=== PATIENT | female | born 1955 | race Caucasian/White ===

== ENCOUNTER 2018-03-16 21:04 | Observation (INO) | payer OTHER ==
[~2018-03-16] VITALS: Ht 154.9 cm; Wt 69.4 kg
[2018-03-16 21:41] VITALS: BP 139/84
--- NOTE | 2018-03-16 21:43 | NUR ---
DR TYREL VAUGHN MBA ON THE PHONE FOR ORDERS FROM DR SARAH. NEW ORDER RECEIVED FOR EKG.
[2018-03-16] MEDS ORDERED: NS 100ML 100 ML IV ONE (22:02)
[2018-03-16] MEDS ORDERED: LACTATED RINGERS 1,000 ML ONE (22:02)
--- NOTE | 2018-03-16 22:03 | ER.PDOC ---
General Chief Complaint: Female Urogenital Problems Stated Complaint: KIDNEY STONES Time seen by MD: 22:00 Source: patient Exam Limitations: no limitations History of Present Illness Initial Comments Right flank pain today, came from [place] to be admitted for right ureteral calculus. Severity/Quality: severe, sharpness Radiation: RLQ Associated Symptoms: nausea/vomiting Exacerbated by: nothing Relieved By: nothing Allergies: Coded Allergies: No Known Allergies (Unverified , 03/16/18) Vital Signs First Vital Signs Date Time Temp Pulse Resp B/P (MAP) Pulse Ox O2 Delivery O2 Flow Rate FiO2 03/16/18 21:36 98.1 65 17 98.1 03/16/18 21:36 97 Room Air 03/16/18 21:41 139/84 (102) Last Vital Signs Date Time Temp Pulse Resp B/P (MAP) Pulse Ox O2 Delivery O2 Flow Rate FiO2 03/16/18 21:41 98.1 65 17 139/84 (102) 97 Room Air 98.1 Past Medical History Medical History: no pertinent history Surgical History: knee LMP (females 10-50): postmenopause Social History Smoking: non-smoker Alcohol Use: none Drug Use: none Constitutional: no symptoms reported EENTM: no symptoms reported Respiratory: no symptoms reported Cardiovascular: no symptoms reported Gastrointestinal: see HPI Genitourinary: see HPI All Other Systems: Reviewed and Negative Physical Exam General Appearance: No Apparent Distress, WD/WN HEENT: PERRL/EOMI, Normal ENT Inspection, TMs Normal, Pharynx Normal Neck: Non-Tender, Full Range of Motion, Supple, Normal Inspection Respiratory: chest non-tender, lungs clear, normal breath sounds, no respiratory distress, no accessory muscle use Cardiovascular: Normal Peripheral Pulses, Regular Rate, Rhythm, No Edema, No Gallop, No JVD, No Murmur Gastrointestinal: Normal Bowel Sounds, No Organomegaly, No Pulsatile Mass, Tenderness (RLQ) Back: Normal Inspection, No CVA Tenderness, No Vertebral Tenderness Extremities: Normal Range of Motion, Non-Tender, Normal Inspection, No Pedal Edema, No Calf Tenderness, Normal Capillary Refill, Pelvis Stable Neurologic/Psychiatric: right of way buyer II-XII NML as Tested, No Motor/Sensory Deficits, Alert, Normal Mood/Affect, Oriented x 3 Skin: Normal Color, Warm/Dry Lymphatic: No Adenopathy EKG/XRAY/CT/US EKG Comments: Sinus bradycardia CT Comments: CT abd/Pelvis done at [facility] shows 9mm right ureteral stone Course Vitals & review Data Vital Sign - Last 24 Hours 03/16/18 03/16/18 03/16/18 21:36 21:36 21:41 Temp 98.1 98.1 98.1 98.1 98.1 98.1 Pulse 65 65 65 Resp 17 17 17 B/P (MAP) 139/84 (102) Pulse Ox 97 97 O2 Delivery Room Air Room Air Departure Time of Disposition: 22:02 Disposition: 09 ADMITTED INPATIENT Impression: Primary Impression: Ureteral stone with hydronephrosis Condition: Stable Referrals: MARTIN SARAH MD (PCP) PRIMARY CARE PROVIDER Comments Admitted to Dr. Sarah Duration or Time Spent with Pa: 45 mins SHILA,JEREMY Oliver MD Mar 16, 2018 22:03
[2018-03-16] MEDS ORDERED: LACTATED RINGERS 1,000 ML IV STA (22:04)
[2018-03-16] MEDS ORDERED: ROCEPHIN 1,000 MG in NS 100ML 100 ML IV STA (22:04)
--- NOTE | 2018-03-16 22:04 | PRM.ACF1 ---
Date and Time Date and Time Time: 22:04 Admission Criteria Forms RENAL COLIC AND KIDNEY STONES: OBSERVATION CARE USE THIS FORM ONLY WHEN INPATIENT ADMISSION CRITERIA ARE NOT MET. (Place X for any and all applicable criteria): Placement for observation care is indicated for a patient with ANY ONE of the following (1)(2)(3)(4)(5 [ x] I. Inability to relieve pain in outpatient setting [ ] II. Vomiting precluding oral hydration despite antiemetic treatment [ ] III. Suspected (eg, fever) infection [ ] IV. Clinical response to outpatient therapy uncertain [ ] V. [ ] . Child whose situation includes ANY ONE of the following: [ ] a) Clinical response to outpatient therapy uncertain [ ] b) Outpatient supervision by parents or caregivers uncertain [ ] VII. Other observation care needs. ( Also refer to General Criteria: Observation Care Form as appropriate) The original [facility] [employer] content created by [facility] has been revised. The portions of the content which have been revised are identified through the use of italic text, and [facility] has neither reviewed nor approved the modified material. All other unmodified content is copyright [facility]. Please see references footnoted in the original [facility] edition 2016 JEREMY FUCHS MD Mar 16, 2018 22:04
[2018-03-16] MEDS ORDERED: ZOFRAN ONE (22:05)
[2018-03-16 22:30] VITALS: BP 137/80
[2018-03-16] MEDS ORDERED: ZOFRAN IV PRN (22:30)
[2018-03-16] MEDS ORDERED: DEMEROL IV PRN (22:30)
[2018-03-17] VITALS (9 sets, daily range): BP systolic 123–142; BP diastolic 64–72
--- NOTE | 2018-03-17 07:00 | NUR ---
NPO Pt NPO, GOT SURGICAL SHOWER.
--- NOTE | 2018-03-17 08:14 | PCM.EKG ---
[facility] Test Date: 2018-03-17 Test Time: 08:05:57 Pat Name: JARAD BISWAS Department: [id number] Room: 313 Gender: F Drug Inspector: RT : 1955 Requested By: JEREMY FUCHS Order Number: [id number] Reading MD: Jeremy FUCHS Measurements Intervals [place] Rate: 67 P: 29 VT: 156 QRS: -25 QRSD: 84 T: -4 QT: 410 QTc: 433 Interpretive Statements Normal sinus rhythm Voltage criteria for left ventricular hypertrophy Abnormal ECG No previous ECG available for comparison Electronically Signed On 03-17-2018 18:46:17 CDT by Jeremy FUCHS Please click the below link to view image of tracing.
[2018-03-17] MEDS ORDERED: SODIUM CHLORIDE IR ONE (08:51)
[2018-03-17] MEDS ORDERED: NS 3000ML IRR IR ONE (08:51)
--- NOTE | 2018-03-17 09:10 | NUR ---
CONSENT FORM DR. SARAH AT THE BEDSIDE TAKING WITH Pt ABOUT PROCEDURE, CONSENT FORM EXPALINED AND SIGNED BY Pt, FAMILY AT THE BEDSIDE.
--- NOTE | 2018-03-17 09:10 | NUR ---
OFF THE FLOOR Pt OFF THE FLOOR TO OR IN HOSPITAL BED, REPORT GIVEN TO OR NURSES,
[2018-03-17] MEDS ORDERED: LIDOCAINE 2% VIAL ONE (09:14)
[2018-03-17] MEDS ORDERED: DECADRON ONE (09:14)
[2018-03-17] MEDS ORDERED: ZOFRAN ONE (09:14)
[2018-03-17] MEDS ORDERED: TORADOL ONE (09:14)
[2018-03-17] MEDS ORDERED: SUBLIMAZE ONE (09:15)
[2018-03-17] MEDS ORDERED: VERSED ONE (09:15)
[2018-03-17] MEDS ORDERED: DIPRIVAN IV ONE (09:15)
[2018-03-17] MEDS ORDERED: LEVAQUIN 100 ML IV ONE (09:17)
[2018-03-17] MEDS ORDERED: TRAM50TA PO (10:15)
[2018-03-17] MEDS ORDERED: CIPR500T86 PO (10:15)
[2018-03-17] MEDS ORDERED: LACTATED RINGERS 1,000 ML IV SCH (10:30)
[2018-03-17] MEDS ORDERED: MORPHINE SULFATE IV PRN (10:30)
[2018-03-17] MEDS ORDERED: ZOFRAN IV PRN (10:30)
[2018-03-17] MEDS ORDERED: PHENERGAN IV PRN (10:30)
[2018-03-17] MEDS ORDERED: NORCO 7.5MG PO PRN (10:30)
--- NOTE | 2018-03-17 10:45 | NUR ---
ARRIVAL FRO OR Pt ARRIVED TO THE FLOOR IN ROOM 313, REPORT RECEIVED FRO OR NURSE STAN RN, Pt ALERT AND ORIENTED X 4, DENIED ANY PAIN AND DISCOMFORT AT THIS TIME. SPECIAL VITAL INITIATED. SPOUSE AT THE BEDSIDE.
[2018-03-17 12:06] LABS: BASOPHIL % 0.2 % (0.0-0.2); EOSINOPHIL # 0.1 10^3/uL (0.0-0.2); HEMOGLOBIN 13.3 g/dL (12.0-15.0); LYMPHOCYTES # 1.1 10^3/uL (1.0-4.8); LYMPHOCYTES % 10.9 % (24.0-44.0); MEAN CELL HGB 31.4 pg (26-34); MEAN CELL HGB CONCENTRATION 32.9 g/dL (33-37); MEAN CORP VOLUME 95.5 fL (78-100); MONOCYTES # 0.6 10^3/uL (0.3-0.8); MONOCYTES % 6.4 % (5.0-12.0); NEUTROPHIL # 8.1 10^3/uL (1.8-7.7); NEUTROPHILS % 81.1 % (41.0-85.0); RED CELL DISTRIBUTION WIDTH 13.6 % (11.5-14.5); WHITE BLOOD CELL 9.9 10^3/uL (4.5-11.0)
--- NOTE | 2018-03-17 13:01 | OPH ---
DATE OF SURGERY: 03/17/2018 PREOPERATIVE DIAGNOSIS: Large calculus, right upper ureter with hydronephrosis. FINAL DIAGNOSIS: Large calculus, right upper ureter with hydronephrosis. PROCEDURES: Cystoscopy, right retrograde, stone manipulation and insertion of double J right ureteral stent. DESCRIPTION OF PROCEDURE: The patient was brought to the cystoscopy room and put in supine position on the cystoscopy table. After the patient was given a satisfactory and adequate LMA general anesthesia, the patient was placed in lithotomy position. The genitalia was then prepped and draped aseptically in the usual manner. First, a 24-Albanian cystoscope was inserted per urethra up to the bladder. With the use of the right angle lens, the bladder was visualized. There was a cystocele noted. There was no tumor, no calculi, no ulcerations seen. Both ureteral orifices were normal. Initial right retrograde was done by inserting a 7-Albanian ureteral catheter in the right ureteral orifice and injected with Isovue dye and it showed a large stone in the right upper ureter with hydronephrosis. A Glidewire was then inserted from the right orifice all the way to the kidney. The stone was manipulated to bypass it and after that, the cystoscope was removed and a 6-Albanian ureteral stent was inserted through the guidewire from the right orifice all the way to the kidney. The fluoroscopy was done, which showed the stent to be in the right position through the guidewire was removed. Cystoscope was reinserted into the bladder and the fluid in the bladder was then emptied. After this was done, instrument was removed. Procedure was terminated. The patient was then awakened, was transferred to the recovery room in stable condition. Glynn Hurtado MD DR: ELADIA/heidi JOB# [id number]
--- NOTE | 2018-03-17 14:25 | NUR ---
DISCHARGED Pt DISCHARGED TO HOME FRO THE UNIT, EDUCATED ON DISCHARGE PACKET, Pt VERBALIZED UNDERSTANDING, IV D/C, ASSISTED Pt TO MAIN EXIT IN WC ACCOMPANIED BY HER FAMILY MEMBER.
--- NOTE | 2018-03-17 20:31 | DIREP ---
PROCEDURE:XRAY UROGRAPHY RETROGRADE COMPARISON:[facility], CT, CT ABD/PELVIS W/O, 03/16/2018, 05:36 PM. INDICATIONS:RT UTEREAL STONE, 8CC OMNIPAQUE 240 USED, 130.1 SEC, 46.94 mGy, 11 IMAGES TECHNIQUE:Intraoperative imaging FINDINGS: Trim Mounter image demonstrates a stone in the right mid ureter, the images were not calibrated to allow for measurement. Second image demonstrates opacification of the right ureter, accumulation of contrast is seen within the right renal collecting system. Successful placement of a right nephroureteral stent mild to moderate right hydronephrosis. CONCLUSION: 1. Placement of a rightnephro ureteral stent. 2. Mild to moderate right hydronephrosis. Dictated by: Alcira Plaza MD on 03/17/2018 at 08:25 PM
== END 2018-03-17 14:25 | disposition home or self-care (01) ==
LOC: ER 21:04 → MS 22:04 → EDPENDDISDT 03-17 14:25 → EDPENDDISTM 03-17 14:25
PROVIDERS: ADMIT Urology; ATTEND Urology
DX: N13.2 Hydronephrosis with renal and ureteral calculous obstruction (principal); N81.10 Cystocele, unspecified
CPT/HCPCS: 36415 ×2; 52330; 52332; 74420; 76000; 85025; 85610; 85730; 93005; 96374; G0378 ×16; J0696; J1100; J1885; J1956; J2001; J2250; J2405 ×2; J3010; J3490; J7030 ×2; J7050 ×2; J7120 ×2; Q9966; C1758; C1769; C2617

== ENCOUNTER 2018-04-19 04:08 | Day surgery (SDC) | payer OTHER ==
[~2018-04-19] VITALS: Ht 154.9 cm; Wt 69.4 kg
[2018-04-19] VITALS (8 sets, daily range): BP systolic 99–154; BP diastolic 54–86
[~2018-04-19 04:08] MED LIST: CIPR500T86 PO; TRAM50TA PO
[2018-04-19] MEDS ORDERED: LEVAQUIN 100 ML IV ONE (05:01)
[2018-04-19] MEDS ORDERED: LACTATED RINGERS 1,000 ML ONE (05:01)
[2018-04-19] MEDS ORDERED: LASIX ONE (05:13)
[2018-04-19] MEDS ORDERED: LACTATED RINGERS 1,000 ML IV SCH ×2 (06:30→09:00)
[2018-04-19] MEDS ORDERED: MELO15TA24 PO (07:29)
[2018-04-19 07:49] LABS: BASOPHIL % 0.3 % (0.0-0.2); EOSINOPHIL # 0.5 10^3/uL (0.0-0.2); EOSINOPHIL % 6.9 % (0.0-5.0); HEMOGLOBIN 13.2 g/dL (12.0-15.0); LYMPHOCYTES # 2.2 10^3/uL (1.0-4.8); LYMPHOCYTES % 28.1 % (24.0-44.0); MEAN CELL HGB 31.2 pg (26-34); MEAN CELL HGB CONCENTRATION 32.8 g/dL (33-37); MEAN PLATELET VOLUME 9.8 fL (7.8-11.0); MONOCYTES # 0.8 10^3/uL (0.3-0.8); MONOCYTES % 10.8 % (5.0-12.0); NEUTROPHIL # 4.1 10^3/uL (1.8-7.7); NEUTROPHILS % 53.4 % (41.0-85.0); RED CELL DISTRIBUTION WIDTH 12.5 % (11.5-14.5); WHITE BLOOD CELL 7.7 10^3/uL (4.5-11.0)
[2018-04-19 07:59] LABS: CARBON DIOXIDE 27.5 mmol/L (20.0-32)
--- NOTE | 2018-04-19 08:15 | DIREP ---
PROCEDURE:XRAY ABDOMEN SINGLE VW COMPARISON:[facility], , XRAY UROGRAPHY RETROGRADE, 03/17/2018, 07:47 AM. INDICATIONS:RIGHT ESWL FINDINGS: BOWEL GAS PATTERN:Normal. CALCIFICATIONS:None significant. LUNG BASES:Clear. BONES:Normal. OTHER:Double pigtail right ureteral stent in place with 8 mm stone adjacent to the proximal stent likely at the UPJ or in the proximal ureter. CONCLUSION: 1. Double pigtail right ureteral stent in place with large stone at the UPJ or in the proximal right ureter. Dictated by: Prabhjot Gee M.D. on 04/19/2018 at 08:04 AM
[2018-04-19] MEDS ORDERED: LASIX IV SCH (09:00)
[2018-04-19] MEDS ORDERED: NORCO 7.5MG PO PRN (09:00)
--- NOTE | 2018-04-19 11:45 | OPH ---
DATE OF SURGERY: 04/19/2018 PREOPERATIVE DIAGNOSIS: Calculus, right proximal ureter with indwelling ureteral stent. FINAL DIAGNOSIS: Calculus, right proximal ureter with indwelling ureteral stent. PROCEDURES: Right ESWL. DESCRIPTION OF PROCEDURE: The patient was brought to the lithotripsy room, was put in supine position on the lithotripsy table. A preop KUB and renal ultrasound revealed a stone in the right proximal ureter with an indwelling stent. After the patient was given an LMA general anesthesia and after localization of the stone with the use of an ultrasound and a C-arm fluoroscopy, a right ESWL was then performed using a Dornier Compact Delta II Lithotripter. A total of 2500 shockwaves were delivered to the stones in the upper ureter. After fragmentation of the stone as noted in the KUB and the ultrasound, the procedure was terminated. The patient was awakened, was transferred to the recovery room in stable condition. Glynn Hurtado MD DR: ELADIA/heidi JOB# [id number]
== END 2018-04-19 09:39 | disposition home or self-care (01) ==
LOC: SDC 04:08
PROVIDERS: ATTEND Urology
DX: N20.1 Calculus of ureter (principal); E66.9 Obesity, unspecified; Z68.28 Body mass index [BMI] 28.0-28.9, adult; Z79.2 Long term (current) use of antibiotics; Z79.899 Other long term (current) drug therapy
CPT/HCPCS: 36415; 50590; 74018; 80051; 82565; 84520; 85025; J1956; J7120; J1940

== ENCOUNTER 2018-04-24 06:56 | Day surgery (SDC) | payer OTHER ==
[~2018-04-24 06:56] MED LIST changes: -DECADRON ONE; -DILAUDID IV PRN; -DIPRIVAN IV ONE; -LACTATED RINGERS 1,000 ML IV SCH; -LACTATED RINGERS 1,000 ML ONE; -LEVAQUIN 100 ML IV ONE; -LIDOCAINE 2% VIAL ONE; -NORCO 7.5MG PO PRN; -SUBLIMAZE IV PRN; -SUBLIMAZE ONE; -TORADOL ONE; -TRANSDERM-SCOP TD STA; -VERSED ONE; -ZOFRAN IV PRN; -ZOFRAN ONE
[2018-04-24] MEDS ORDERED: TRANSDERM-SCOP TD ONE (07:38)
== END 2018-04-24 09:08 | disposition home or self-care (01) | DRG 694 ==
LOC: SDC 06:56
PROVIDERS: ATTEND Urology
DX: N20.1 Calculus of ureter (principal); E66.3 Overweight; Z68.28 Body mass index [BMI] 28.0-28.9, adult; Z79.2 Long term (current) use of antibiotics; Z79.899 Other long term (current) drug therapy; Z98.51 Tubal ligation status; Z98.890 Other specified postprocedural states; Z96.0 Presence of urogenital implants

== ENCOUNTER → 2018-04-24 | Day surgery (SDC) | payer OTHER ==
[~2018-04-24] VITALS: Ht 154.9 cm; Wt 69.4 kg
[~2018-04-24] MED LIST changes: +DECADRON ONE; +DILAUDID IV PRN; +DIPRIVAN IV ONE; +LACTATED RINGERS 1,000 ML IV SCH; +LACTATED RINGERS 1,000 ML ONE; +LEVAQUIN 100 ML IV ONE; +LIDOCAINE 2% VIAL ONE; +MELO15TA24 PO; +NORCO 7.5MG PO PRN; +SUBLIMAZE IV PRN; +SUBLIMAZE ONE; +TORADOL ONE; +TRANSDERM-SCOP TD STA; +VERSED ONE; +ZOFRAN IV PRN; +ZOFRAN ONE
[2018-04-24 06:55] VITALS: BP 165/84
[2018-04-24 08:15] VITALS: BP 125/60
[2018-04-24 08:30] VITALS: BP 127/44
[2018-04-24 08:35] VITALS: BP 113/55
[2018-04-24 08:50] VITALS: BP 136/73
[2018-04-24 09:05] VITALS: BP 129/74
--- NOTE | 2018-04-24 10:59 | OPH ---
DATE OF SURGERY: 04/24/2018 PREOPERATIVE DIAGNOSIS: Calculus, right proximal ureter with an indwelling stent, status post extracorporeal shock wave lithotripsy. FINAL DIAGNOSIS: Calculus, right proximal ureter with an indwelling stent, status post extracorporeal shock wave lithotripsy. PROCEDURES: Cystoscopy, removal of right ureteral stent with ureteroscopy. DESCRIPTION OF PROCEDURE: The patient was brought to the cystoscopy room and was put in supine position on the cystoscopy table. After the patient was given a satisfactory and adequate LMA general anesthesia, the patient was placed in the lithotomy position. The genitalia was then prepped and draped aseptically in the usual manner. First, a 23-Hebrew cystoscope was inserted per urethra up to the bladder. With the use of the right angle lens, the bladder was visualized and there was a stent noted in the right ureteral orifice. The rest of the bladder revealed no evidence of tumor, no calculi, no ulcerations seen. The right ureteral stent was then removed and replaced with a Glidewire. After this was done, the cystoscope was removed and a 7-Hebrew semirigid ureteroscope was inserted into the bladder into the right ureteral orifice all the way to the upper ureter and this showed no more evidence of residual stone, no obstruction noted. After this was done, the Glidewire and the ureteroscope were removed. The cystoscope was reinserted to the bladder and the bladder was emptied with fluid. After this was done, the procedure was terminated. Instrument was removed. The patient was then awakened, was transferred to the recovery room in stable condition. Glynn Hurtado MD DR: ELADIA/heidi JOB# [id number]
--- NOTE | 2018-04-24 11:12 | DIREP ---
PROCEDURE:XRAY FLUOROSCOPY COMPARISON:None. INDICATIONS:STENT REMOVAL 5 FILMS 19.46MGY 82.7 SECS FLURO FINDINGS: Intraoperative fluoroscopy was provided for the ordering clinician by the Radiology Department for right ureteral stent removal. 5 images submitted for interpretation demonstrating retrograde urogram and subsequent removal of double-J right ureteral stent. 82.7 seconds fluoroscopy time utilized. CONCLUSION: Intraoperative fluoroscopy provided for the ordering clinician by the Radiology Department as detailed above. Dictated by: Marcos Martins DO on 04/24/2018 at 11:10 AM
== END | disposition home or self-care (01) ==
LOC: SURG 00:15
PROVIDERS: ATTEND Urology
DX: N20.1 Calculus of ureter (principal); E66.3 Overweight; Z68.28 Body mass index [BMI] 28.0-28.9, adult; Z79.2 Long term (current) use of antibiotics; Z79.899 Other long term (current) drug therapy; Z98.51 Tubal ligation status; Z98.890 Other specified postprocedural states; Z96.0 Presence of urogenital implants
CPT/HCPCS: 52351; 76000; J1100 ×2; J1885; J1956; J2001 ×2; J2250 ×2; J2405 ×2; J3010 ×2; J3490 ×2; J7120; C1758

== ENCOUNTER 2020-12-26 14:35 | Inpatient (IN) | payer BC, OTHER ==
[2020-12-26] VITALS (11 sets, daily range): BP systolic 128–184; BP diastolic 58–106
[~2020-12-26] VITALS: Ht 154.9 cm; Wt 63.5 kg
[2020-12-26] MEDS ORDERED: NS 1000ML 1,000 ML ONE (14:48)
[2020-12-26 14:49] LABS: BASOPHIL % 0.3 % (0.0-0.2); EOSINOPHIL # 0.3 10^3/uL (0.0-0.2); EOSINOPHIL % 2.8 % (0.0-5.0); LYMPHOCYTES # 3.11 10^3/uL1 (1.0-4.8); LYMPHOCYTES % 31.2 % (24.0-44.0); MEAN CORP HGB 30.6 pg (26-34); MONOCYTES # 0.7 10^3/uL (0.3-0.8); MONOCYTES % 7.1 % (5.0-12.0); NEUTROPHIL # 5.8 10^3/uL (1.8-7.7); NEUTROPHILS % 58.2 % (41.0-85.0); PLATELET COUNT 297 10^3/uL (150-400); RED CELL DISTRIBUTION WIDTH 13.1 % (11.5-14.5)
--- NOTE | 2020-12-26 14:50 | PCM.EKG ---
[facility] Test Date: 2020-12-26 Test Time: 14:40:50 Pat Name: JARAD BISWAS Department: Room: ICU2 Gender: F Investigator Welfare: IKE : 1955 Requested By: BRANDIN SALVADOR Order Number: [id number] Reading MD: Brandin Salvador Measurements Intervals [place] Rate: 87 P: 23 NE: 149 QRS: -32 QRSD: 92 T: 25 QT: 369 QTc: 444 Interpretive Statements Sinus rhythm Abnormal R-wave progression, early transition Left ventricular hypertrophy Compared to ECG 03/17/2018 08:05:57 No significant changes Electronically Signed On 12-27-2020 8:17:04 CDT by Brandin Salvador Please click the below link to view image of tracing.
[2020-12-26] MEDS ORDERED: NS 1000ML 1,000 ML IV ONE (15:00)
--- NOTE | 2020-12-26 15:04 | DIREP ---
PROCEDURE:CHEST 1 VIEW COMPARISON:[facility], CR, XRAY CHEST 2 VWS, 10/25/2020, 10:23 AM. INDICATIONS:syncope FINDINGS: LUNGS/PLEURA:No significant pulmonary parenchymal abnormalities. No effusions. VASCULATURE:Normal. Unremarkable pulmonary vasculature. CARDIAC:Normal. No cardiac silhouette abnormality or cardiomegaly. MEDIASTINUM:Mediastinal contours appear within acceptable limits. BONES:Degenerative changes of the spine. OTHER:Negative. CONCLUSION:No acute cardiopulmonary abnormality. Dictated by: Ryan Holt M.D. on 12/26/2020 at 03:01 PM
[2020-12-26 15:13] LABS: ALANINE AMINOTRANSFERASE(ML) 23 U/L (12-78); ALKALINE PHOSPHATASE 60 U/L (50-136); ASPARTATE AMINO TRANSFERASE 17 U/L (0-35); CALCIUM 9.8 mg/dL (8.4-10.5); GLUCOSE 240 mg/dL (70-110)
[2020-12-26 15:35] LABS: BILIRUBIN,URINE NEGATIVE (NEGATIVE); UA COLOR YELLOW
[2020-12-26 15:36] LABS: UROBILINOGEN,URINE 0.2 E.U./dL (0.2)
--- NOTE | 2020-12-26 15:37 | DIREP ---
PROCEDURE:CT HEAD OR BRAIN W/O CONTRAST COMPARISON:[facility], CT, CT HEAD BRAIN W/O CONTRAST, 10/12/2020, 09:09 AM. INDICATIONS:sss TECHNIQUE:CT images were created without intravenous contrast. FINDINGS: VENTRICLES: Unremarkable ventricular size and morphology for the patient's age. CEREBRUM: No apparent mass or mass effect. No acute intracranial hemorrhage or abnormal extra-axial fluid collections. Mild chronic small vessel ischemic demyelination. 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 No CT evidence to suggest acute large vascular territorial ischemia. CEREBELLUM: Unremarkable for the patient's age. BRAINSTEM: Normal. SKULL: Normal. SINUSES: No significant paranasal sinus disease CONCLUSION: 1. Senescent changes with mild chronic small vessel ischemic demyelination and apparent tiny remote lacunar infarct of the left basal ganglia. The overall appearance is fairly similar to the previous study. No acute intracranial abnormality is identified. Dictated by: Ryan Holt M.D. On 12/26/2020 at 03:33 PM
[2020-12-26 15:44] LABS: YEAST,URINE FEW
--- NOTE | 2020-12-26 15:55 | ER.PDOC ---
General Chief Complaint: Syncope Stated Complaint: SYNcOPE Time seen by MD: 15:44 Source: patient Exam Limitations: no limitations History of Present Illness Timing/Prior Episodes: no prior history, single episode today Symptoms Prior to Episode: confusion, lightheadedness, nausea Precipitating Factors: sitting Loss of Consciousness: Brief (Seconds) Location of Injury: None Current Symptoms: back to normal, diaphoresis, dizziness, lightheadedness, nausea Allergies: Coded Allergies: No Known Allergies (Unverified , 03/16/18) Home Meds Active Scripts Tramadol Hcl (TRAMADOL HCL) 50 Mg Tablet, 50 MG PO Q6 PRN for PAIN, #20 TABLET Prov:MARTIN SARAH MD 03/17/18 Ciprofloxacin Hcl (CIPRO) 500 Mg Tablet, 500 MG PO BID, #20 Prov:MARTIN SARAH MD 03/17/18 Reported Medications Meloxicam (MELOXICAM) 15 Mg Tablet, 1 TAB PO DAILY, #30 TAB 2 Refills 04/19/18 Past Medical History Medical History: no pertinent history Surgical History: hysterectomy LMP (females 10-50): postmenopause Social History Alcohol Use: none Drug Use: none Reviewed Nursing Reviewed: Vital Signs, Abn. Noted Review of Systems All Other Systems: Reviewed and Negative Physical Exam General Appearance: No Apparent Distress, WD/WN HEENT: PERRL/EOMI, Normal ENT Inspection, TMs Normal, Pharynx Normal Neck: Non-Tender, Full Range of Motion, Supple, Normal Inspection Cardiovascular/Respiratory: Regular Rate, Rhythm, No M/R/G, Normal Peripheral Pulses, No JVD, Normal Breath Sounds, No Respiratory Distress Gastrointestinal: Normal Bowel Sounds, No Organomegaly, No Pulsatile Mass, Non Tender, Soft Extremities: Normal Range of Motion, Non-Tender, Normal Inspection, No Pedal Edema, No Calf Tenderness, Normal Capillary Refill Psychiatric: Alert, Oriented x 3 Cranial Nerves: Normal Hearing, Normal Speech, PERRL Coordination/Gait: Normal Finger to Nose, Normal Gait, Negative Romberg's Sign Motor/Sensory: No Motor Deficit, No Sensory Deficit, No Pronator Drift, Negative Babinski's Sign Skin: Normal Color, Warm/Dry Lymphatic: No Adenopathy Results/Orders Results/Orders Orders - VALENTINO TORO MD Cbc With Auto Diff (12/26/20 14:38) Comprehensive Metabolic Panel (12/26/20 14:38) Creatine Kinase (12/26/20 14:38) Creatine Kinase Mb (12/26/20 14:38) Troponin I (12/26/20 14:38) Probnp B-Type Painter Rough (12/26/20 14:38) PT (12/26/20 14:38) Partial Thromboplastin Time. (12/26/20 14:38) D-Dimer (12/26/20 14:38) Xr Chest 1v (12/26/20 14:38) Ekg-Routine (12/26/20 14:38) 0.9 % Sodium Chloride (Ns 1000ml) (12/26/20 15:00) Urinalysis (12/26/20 14:42) 0.9 % Sodium Chloride (Ns 1000ml) (12/26/20 14:48) Ct Head Wo Contrast (12/26/20 14:56) Urine Culture (12/26/20 15:25) Drug Scrn Med W Confirmation (12/26/20 15:37) Vital Signs Date Time Temp Pulse Resp B/P (MAP) Pulse Ox O2 Delivery O2 Flow Rate FiO2 12/26/20 14:35 98.6 86 16 96 12/26/20 14:35 98.6 86 18 12/26/20 14:35 98.6 86 18 130/82 (98) 96 Room Air Administered Medications Medications (Trade) Dose Ordered Sig/Dale Route PRN Reason Start Time Stop Time Status Last Admin Dose Admin Sodium Chloride 1,000 ml @ 0 mls/hr Q0M ONCE IV 12/26/20 15:00 12/26/20 15:01 DC 12/26/20 15:02 1,200 MLS/HR Laboratory Tests Test 12/26/20 14:40 12/26/20 15:25 White Blood Count 10.0 10^3/uL (4.5-11.0) Red Blood Count 4.54 10^6/uL (4.00-5.20) Hemoglobin 13.9 g/dL (12.0-15.0) Hematocrit 43.9 % (36.0-46.0) Mean Corpuscular Volume 96.7 fL (78-100) Mean Corpuscular Hemoglobin 30.6 pg (26-34) Mean Corpuscular Hemoglobin Concent 31.7 g/dL (33-36.5) L Red Cell Distribution Width 13.1 % (11.5-14.5) Platelet Count 297 10^3/uL (150-400) Mean Platelet Volume 9.5 fL (7.8-11.0) Neutrophils (%) (Auto) 58.2 % (41.0-85.0) Lymphocytes (%) (Auto) 31.2 % (24.0-44.0) Monocytes (%) (Auto) 7.1 % (5.0-12.0) Neutrophils # (Auto) 5.8 10^3/uL (1.8-7.7) Lymphocytes # (Auto) 3.11 10^3/uL1 (1.0-4.8) Monocytes # (Auto) 0.7 10^3/uL (0.3-0.8) Absolute Immature Granulocyte (auto 0.04 10^3 u/L (0-2) Absolute Eosinophils (auto) 0.3 10^3/uL (0.0-0.2) H Immature Granulocytes % 0.40 % (0.00-0.50) Eosinophils % 2.8 % (0.0-5.0) Basophils % 0.3 % (0.0-0.2) H Basophils # 0.0 10^3/uL (0.0-0.1) Prothrombin Time 10.4 SEC (9.6-12.0) Prothrombin Time INR (Non-Therap) 1.0 Activated Partial Thromboplast Time 18.8 SEC (24.67-30.72) D-Dimer 1.00 mg/L (0.19-0.49) *H Sodium Level 141 mmol/L (132-145) Potassium Level 4.2 mmol/L (3.6-5.2) Chloride Level 102.0 mmol/L (96-109) Carbon Dioxide Level 27.0 mmol/L (20.0-32) Anion Gap 16.2 Blood Urea Nitrogen 23 mg/dL (7-18) H Creatinine 1.12 mg/dL (0.59-1.40) Estimated GFR () 59.1 (>/=60) Est GFR (CKD-EPI)(Non-Afr Mozambican) 48.8 (>/=60) BUN/Creatinine Ratio 20.0 Glucose Level 240 mg/dL (70-110) H Calcium Level 9.8 mg/dL (8.4-10.5) Total Bilirubin 0.5 mg/dL (0.2-1.0) Aspartate Amino Transferase (AST) 17 U/L (0-35) Alanine Aminotransferase (ALT) 23 U/L (12-78) Alkaline Phosphatase 60 U/L (50-136) Total Creatine Kinase 38 U/L (26-192) Creatine Kinase MB 0.6 ng/mL (0.5-3.6) Troponin I < 0.02 ng/mL (0.00-0.05) Pro-B-Type Natriuretic Peptide 204 pg/mL (0-125) H Total Protein 8.1 g/dL (6.4-8.2) Albumin 3.9 g/dL (3.4-5.0) Globulin 4.2 Albumin/Globulin Ratio 0.928 Urine Collection Type RANDOM Urine Color YELLOW Urine Appearance CLOUDY Urine Bilirubin NEGATIVE (NEGATIVE) Urine Ketones 40 mg/dL (NEGATIVE) H Urine Specific Foster >=1.030 (1.005-1.030) Urine pH 5.5 (4.5-8.0) Urine Protein 30 mg/dL (NEGATIVE) H Urine Urobilinogen 0.2 E.U./dL (0.2) Urine Nitrate NEGATIVE (NEGATIVE) Urine Leukocyte Esterase SMALL (NEGATIVE) H Urine Glucose (Auto)(UA) 100 (NEGATIVE) H Urine Blood NEGATIVE (NEGATIVE) Urine RBC 0-2 RBC/HPF (NONE SEEN) Urine WBC 5-10 WBC/HPF (0-2) H Urine Squamous Epithelial Cells MODERATE #/HPF (FEW) Urine Renal Epithelial Cells FEW #/HPF (NONE SEEN) Urine Amorphous Sediment SMALL (NONE SEEN) Urine Bacteria FEW (NONE SEEN) H Urine Hyaline Casts 2-5 (NONE SEEN) Urine Yeast FEW Urine Opiates Screen NEGATIVE (c/o300ng/mL) Urine Methadone Screen NEGATIVE (c/o300ng/mL) Urine Barbiturates Screen NEGATIVE (c/o200ng/mL) Urine Phencyclidine Screen NEGATIVE (c/o 25ng/mL) Ur Amphetamine/Methamphetamine NEGATIVE (va8609er/mL) Urine MDMA Screen (Ecstasy) NEGATIVE (c/o300ng/mL) Urine Benzodiazepines Screen NEGATIVE (c/o200ng/mL) Urine Cocaine Metabolite Screen NEGATIVE (c/o300ng/mL) Ur Tetrahydrocannabinol (THC) Scrn NEGATIVE (c/o 50ng/mL) EKG/XRAY/CT/US EKG: NSR, no ST T wave changes Consult/PCP Time Consult/PCP Called: 17:11 Consult/PCP: DR WILSON ER DEPART Departure Time of Disposition: 16:00 Disposition: 09 ADMITTED INPATIENT Impression: Primary Impression: Syncope and collapse Condition: Improved Referrals: MARY PALACIOS PA-C (PCP) PRIMARY CARE PROVIDER Duration or Time Spent with Pa: 15m VALENTINO TORO MD Dec 26, 2020 15:55
--- NOTE | 2020-12-26 16:24 | NUR ---
ARRIVED VIA WHEELCHAIR. AMBULATED TO BED. PATIENT FEELING NAUSEATED. VOMITED ABOUT 200CC YELLOW EMESES. NOTIFIED DR. PRESTON.
[2020-12-26] MEDS ORDERED: APRESOLINE IV PRN (17:30)
[2020-12-26] MEDS ORDERED: ZOFRAN IV PRN (17:30)
[2020-12-26] MEDS ORDERED: ASPIRIN EC PO STA (17:55)
--- NOTE | 2020-12-26 17:55 | PCM.HP ---
HISTORY & PHYSICAL HISTORY & PHYSICAL DATE OF ADMISSION: December 26, 2020 CHIEF COMPLAINT: Syncope HISTORY OF PRESENT ILLNESS: 65-year-old female with previous history of osteoarthritis was apparently walking outside for a few minutes and she felt tired she went into the car and suddenly lost consciousness she became stiff and started vomiting denies any incontinent of bladder or bowel no injuries therefore patient was brought to the ER and in the ER patient was evaluated and admitted for further management patient denies any preceding palpitation chest pain headache nausea vomiting or lightheadedness denies any fever chills or rigors denies any dysuria hematuria or increased frequency of urination denies any diarrhea or abdominal pain ALLERGIES: No known drug allergy CURRENT MEDICATIONS: Patient claims he was taking meloxicam 15 mg daily no other medication, But she has according to the ER record also taking tramadol PAST MEDICAL HISTORY: Osteoarthritis of the knee SOCIAL HISTORY: Denies smoking alcohol or drug use active lifestyle FAMILY HISTORY: No premature heart disease stroke or heart block lipidemia REVIEW OF SYSTEMS: No recent change in weight no fever chills or rigors noted change in appetite weight is maintained regular bowel movement no melena or hematochezia no dysuria hematuria or increased frequency of urination and no effort angina no effort dyspnea no palpitations,All systems reviewed and negative except mentioned above VITAL SIGNS: Vital Signs Date Time Temp Pulse Resp B/P (MAP) Pulse Ox O2 Delivery O2 Flow Rate FiO2 12/26/20 17:37 82 134/68 (90) 98 12/26/20 17:30 Room Air 12/26/20 17:20 182/106 (131) 97 12/26/20 17:18 88 184/106 12/26/20 17:04 184/106 (132) 12/26/20 16:49 168/93 (118) 12/26/20 16:25 97.8 85 18 167/96 (119) 100 12/26/20 15:35 84 128/58 (81) 98 12/26/20 14:35 98.6 86 16 96 12/26/20 14:35 98.6 86 18 12/26/20 14:35 98.6 86 18 130/82 (98) 96 Room Air PHYSICAL EXAMINATION: General: Patient is awake alert oriented not in acute distress HEENT: Mild resting involuntary head bobbing movement present and noted pupil react light equal in size mucous membrane is moist neck supple no JVD no carotid bruit no thyromegaly Lungs air entry symmetrical no Rales or rhonchi heard no wheezes heard Heart S1-S2 heard no murmur gallop appreciated Abdomen not distended soft no guarding no rigidity no organomegaly no masses Extremities: No edema no calf tenderness [employer] cranial nerves II to XII grossly intact muscle power 5/5 in all 4 limbs, no sensory deficit Romberg's negative Babinski negative bilateral lower extremity reflexes are slightly exaggerated but symmetrical LABORATORY DATA: Laboratory Tests Test 12/26/20 14:40 12/26/20 15:25 White Blood Count 10.0 10^3/uL (4.5-11.0) Red Blood Count 4.54 10^6/uL (4.00-5.20) Hemoglobin 13.9 g/dL (12.0-15.0) Hematocrit 43.9 % (36.0-46.0) Mean Corpuscular Volume 96.7 fL (78-100) Mean Corpuscular Hemoglobin 30.6 pg (26-34) Mean Corpuscular Hemoglobin Concent 31.7 g/dL (33-36.5) Red Cell Distribution Width 13.1 % (11.5-14.5) Platelet Count 297 10^3/uL (150-400) Mean Platelet Volume 9.5 fL (7.8-11.0) Neutrophils (%) (Auto) 58.2 % (41.0-85.0) Lymphocytes (%) (Auto) 31.2 % (24.0-44.0) Monocytes (%) (Auto) 7.1 % (5.0-12.0) Neutrophils # (Auto) 5.8 10^3/uL (1.8-7.7) Lymphocytes # (Auto) 3.11 10^3/uL1 (1.0-4.8) Monocytes # (Auto) 0.7 10^3/uL (0.3-0.8) Absolute Immature Granulocyte (auto 0.04 10^3 u/L (0-2) Absolute Eosinophils (auto) 0.3 10^3/uL (0.0-0.2) Immature Granulocytes % 0.40 % (0.00-0.50) Eosinophils % 2.8 % (0.0-5.0) Basophils % 0.3 % (0.0-0.2) Basophils # 0.0 10^3/uL (0.0-0.1) Prothrombin Time 10.4 SEC (9.6-12.0) Prothrombin Time INR (Non-Therap) 1.0 Activated Partial Thromboplast Time 18.8 SEC (24.67-30.72) D-Dimer 1.00 mg/L (0.19-0.49) Sodium Level 141 mmol/L (132-145) Potassium Level 4.2 mmol/L (3.6-5.2) Chloride Level 102.0 mmol/L (96-109) Carbon Dioxide Level 27.0 mmol/L (20.0-32) Anion Gap 16.2 Blood Urea Nitrogen 23 mg/dL (7-18) Creatinine 1.12 mg/dL (0.59-1.40) Estimated GFR () 59.1 (>/=60) Est GFR (CKD-EPI)(Non-Afr English) 48.8 (>/=60) BUN/Creatinine Ratio 20.0 Glucose Level 240 mg/dL (70-110) Calcium Level 9.8 mg/dL (8.4-10.5) Total Bilirubin 0.5 mg/dL (0.2-1.0) Aspartate Amino Transf (AST/SGOT) 17 U/L (0-35) Alanine Aminotransferase (ALT/SGPT) 23 U/L (12-78) Alkaline Phosphatase 60 U/L (50-136) Total Creatine Kinase 38 U/L (26-192) Creatine Kinase MB 0.6 ng/mL (0.5-3.6) Troponin I < 0.02 ng/mL (0.00-0.05) Pro-B-Type Natriuretic Peptide 204 pg/mL (0-125) Total Protein 8.1 g/dL (6.4-8.2) Albumin 3.9 g/dL (3.4-5.0) Globulin 4.2 Albumin/Globulin Ratio 0.928 Urine Collection Type RANDOM Urine Color YELLOW Urine Appearance CLOUDY Urine Bilirubin NEGATIVE (NEGATIVE) Urine Ketones 40 mg/dL (NEGATIVE) Urine Specific Carrie >=1.030 (1.005-1.030) Urine pH 5.5 (4.5-8.0) Urine Protein 30 mg/dL (NEGATIVE) Urine Urobilinogen 0.2 E.U./dL (0.2) Urine Nitrate NEGATIVE (NEGATIVE) Urine Leukocyte Esterase SMALL (NEGATIVE) Urine Glucose (Auto)(UA) 100 (NEGATIVE) Urine Blood NEGATIVE (NEGATIVE) Urine RBC 0-2 RBC/HPF (NONE SEEN) Urine WBC 5-10 WBC/HPF (0-2) Urine Squamous Epithelial Cells MODERATE #/HPF (FEW) Urine Renal Epithelial Cells FEW #/HPF (NONE SEEN) Urine Amorphous Sediment SMALL (NONE SEEN) Urine Bacteria FEW (NONE SEEN) Urine Hyaline Casts 2-5 (NONE SEEN) Urine Yeast FEW Urine Opiates Screen NEGATIVE (c/o300ng/mL) Urine Methadone Screen NEGATIVE (c/o300ng/mL) Urine Barbiturates Screen NEGATIVE (c/o200ng/mL) Urine Phencyclidine Screen NEGATIVE (c/o 25ng/mL) Ur Amphetamine/Methamphetamine NEGATIVE ([id number]/mL) Urine MDMA Screen (Ecstasy) NEGATIVE (c/o300ng/mL) Urine Benzodiazepines Screen NEGATIVE (c/o200ng/mL) Urine Cocaine Metabolite Screen NEGATIVE (c/o300ng/mL) Ur Tetrahydrocannabinol (THC) Scrn NEGATIVE (c/o 50ng/mL) Current Medications Medications (Trade) Dose Ordered Sig/Dale Route PRN Reason Start Time Stop Time Status Last Admin Dose Admin Sodium Chloride 1,000 ml @ 0 mls/hr Q0M ONCE IV 12/26/20 15:00 12/26/20 15:01 DC 12/26/20 15:02 Sodium Chloride 1,000 ml @ ud STK-MED ONCE .ROUTE 12/26/20 14:48 12/26/20 14:48 DC Hydralazine HCl (Apresoline) 10 mg Q4HR PRN IV HYPERTENSION 12/26/20 17:30 01/25/21 17:29 UNV 12/26/20 17:18 Ondansetron HCl (Zofran) 4 mg Q4H PRN IV NAUSEA / VOMITING 12/26/20 17:30 01/25/21 17:29 UNV IMAGING: PROCEDURE:CT HEAD OR BRAIN W/O CONTRAST COMPARISON:[facility], CT, CT HEAD BRAIN W/O CONTRAST, 10/12/2020, 09:09 AM. INDICATIONS:sss TECHNIQUE:CT images were created without intravenous contrast. FINDINGS: VENTRICLES: Unremarkable ventricular size and morphology for the patient's age. CEREBRUM: No apparent mass or mass effect. No acute intracranial hemorrhage or abnormal extra-axial fluid collections. Mild chronic small vessel ischemic demyelination. 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 No CT evidence to suggest acute large vascular territorial ischemia. CEREBELLUM: Unremarkable for the patient's age. BRAINSTEM: Normal. SKULL: Normal. SINUSES: No significant paranasal sinus disease CONCLUSION: 1. Senescent changes with mild chronic small vessel ischemic demyelination and apparent tiny remote lacunar infarct of the left basal ganglia. The overall appearance is fairly similar to the previous study. No acute intracranial abnormality is identified. SUMMARY: 65-year-old female with previous history of no known medical problem except osteoarthritis had a syncopal episode CT scan showed previous lacunar infarct and during hospitalization on blood pressure remained elevated around 140s to 180s, will start patient on hydralazine as needed and Ecotrin will order MRI/MRA of the brain and neck and echocardiogram MRA of the neck and reevaluate the patient in a.m. or discharge planning ASSESSMENT/PLAN: 1. Syncope 2. Osteoarthritis 3. Previous lacunar infarct of the basal ganglia Management start telemetry monitoring MRI/MRA of the brain and MRA of the neck lipid panel TSH overnight telemetry monitoring discharge planning in a.m. OSCAR PRESTON MD Dec 26, 2020 17:55
--- NOTE | 2020-12-26 17:55 | NUR ---
VOMITED ABOUT 50CC YELLOW/BROWN EMESIS. ADMINISTERED ZOFRAN IV ORDERED.
--- NOTE | 2020-12-26 18:45 | NUR ---
Rec'd pt report. Pt resting in bed.
--- NOTE | 2020-12-26 19:55 | NUR ---
VS and assessment completed. See Interventions. Orthostatic BPs: laying 150/82, sitting 142/88, standing 147/87. Pt tolerated without dizziness or lightheadedness.
--- NOTE | 2020-12-26 20:52 | NUR ---
Pt up to BSC and voided 250 efra urine. Pt started to get up by herself without calling nurses. Pt instructed to use call light to call nurse prior to getting up. Pt voiced understanding.
--- NOTE | 2020-12-26 21:45 | NUR ---
SCD's applied bilat. Machine turned on and functioning.
--- NOTE | 2020-12-27 01:30 | NUR ---
Care endorsed to Virgie Jeff RN and Ishan Garcia RN.
[2020-12-27 04:12] VITALS: BP 131/50
--- NOTE | 2020-12-27 05:20 | NUR ---
Resumed care of pt.
[2020-12-27 05:50] LABS: BASOPHIL % 0.1 % (0.0-0.2); EOSINOPHIL # 0.1 10^3/uL (0.0-0.2); LYMPHOCYTES # 2.65 10^3/uL1 (1.0-4.8); LYMPHOCYTES % 29.8 % (24.0-44.0); MEAN CORP HGB 30.8 pg (26-34); MONOCYTES # 0.8 10^3/uL (0.3-0.8); MONOCYTES % 8.9 % (5.0-12.0); NEUTROPHIL # 5.3 10^3/uL (1.8-7.7); PLATELET COUNT 255 10^3/uL (150-400); RED CELL DISTRIBUTION WIDTH 13.2 % (11.5-14.5)
[2020-12-27 06:03] LABS: CALCIUM 8.8 mg/dL (8.4-10.5); CARBON DIOXIDE 26.7 mmol/L (20.0-32)
--- NOTE | 2020-12-27 07:03 | NUR ---
Report to oncoming shift.
[2020-12-27 08:26] VITALS: BP 131/71
[2020-12-27] MEDS ORDERED: MAGNESIUM SULFATE 50 ML IV ONE (08:30)
[2020-12-27] MEDS ORDERED: ASPIRIN EC PO SCH (09:00)
[2020-12-27] MEDS ORDERED: PROTONIX PO SCH (09:00)
--- NOTE | 2020-12-27 11:13 | NUR ---
Patient off unit for MRI
--- NOTE | 2020-12-27 11:22 | NUR ---
DISCHARGE PLANNING CM VISITED WITH PATIENT ABOUT DISCHARGE PLANS AND NEEDS. PATIENT CURRENTLY LIVES@HOME. PATIENT'S MOTHER HAS DEMENTIA AND IS LIVING WITH PATIENT. PATIENT'S SISTER IS AVAILABLE NEEDED. PATIENT DENIES HAVING ANY MEDICAL EQUIPMENT@HOME AND DENIES NEEDING ANY. PATIENT PLANS TO DISCHARGE HOME TO SELF CARE. [employer] CHO[employer] LETTER SIGNED DENYING NEED FOR ANY SERVICES OFFERED. Addendum: 12/27/20 at 1451 by Era Ronquillo RN,Case Managechyna LANDAVERDE CM FAXED H&P, DC SUMMARY, MEDS, LABS, VS, PT VISIT REPORT TO [facility]@[phone]. FAX CONFIRMATION RECEIVED COMPLETE. CM SPOKE TO MOSES CHUAMarbin AND INFORMED OF DISCHARGE TODAY. Addendum: 12/27/20 at 1452 by Era Ronquillo RN,Case Managechyna RN ERROR ADDENDUM 12/27/20@1451 ENTERED IN ERROR ON WRONG PATIENT.
[2020-12-27 12:27] VITALS: BP 145/74
--- NOTE | 2020-12-27 13:35 | DIREP ---
PROCEDURE:MRA HEAD W/O CONTRAST COMPARISON:None. INDICATIONS:syncope TECHNIQUE:MR angiography was performed in the usual manner yielding 3D reconstructed images of the cerebral arteries. FINDINGS: INTERNAL CAROTIDS:No visible stenosis or aneurysm. ANTERIOR CEREBRALS:No visible stenosis or aneurysm. MIDDLE CEREBRALS:No visible stenosis or aneurysm. POSTERIOR CEREBRALS:No visible stenosis or aneurysm. BASILAR:No visible stenosis or aneurysm. VERTEBRALS:No visible stenosis or aneurysm. OTHER:Negative with no evidence of a vascular malformation. CONCLUSION:Normal examination. PLEASE NOTE that a normal brain MRA does not entirely exclude the possibility of small aneurysm, or the possibility of distal intracranial vessel disease. Dictated by: Yeison Gregory M.D. on 12/27/2020 at 01:28 PM
--- NOTE | 2020-12-27 13:38 | DIREP ---
This report includes an Addendum and supersedes previous reports for this exam. PROCEDURE:MRA NECK W/O CONTRAST COMPARISON:None. INDICATIONS:syncope TECHNIQUE:MR angiography was performed without intravenous gadolinium, yielding 3D/multi-planar images of the carotid and vertebral arteries. FINDINGS: RIGHT CAROTID SYSTEM:Normal. LEFT CAROTID SYSTEM:Normal. VERTEBRAL ARTERIES:Normal. OTHER:Normal. CONCLUSION:Normal examination. Dictated by: Yeiosn Gregory M.D. on 12/27/2020 at 01:34 PM NDUM: Normal neck MRA. Dictated by: Yeison Gregory M.D. on 12/27/2020 at 02:08 PM
--- NOTE | 2020-12-27 13:42 | DIREP ---
PROCEDURE:MRI - BRAIN WITHOUT CONTRAST COMPARISON:[facility], CT, CT HEAD BRAIN W/O CONTRAST, 12/26/2020, 03:00 PM. [facility], MR, MRA NECK W/O CONTRAST, 12/27/2020, 11:23 AM. [facility], MR, MRA HEAD W/O CONTRAST, 12/27/2020, 11:09 AM. INDICATIONS:syncope TECHNIQUE:A variety of imaging planes and parameters were utilized for visualization of suspected pathology in the brain. Images were performed without gadolinium contrast.. FINDINGS: CSF SPACES:Ventricles, cisterns, and sulci are appropriate for age. No hydrocephalus, subarachnoid hemorrhage, or mass. CEREBRUM:No edema, hemorrhage, mass, acute infarction, or inappropriate atrophy. Mild scattered hyperintense foci are present, typical for a patient of this age, most commonly caused by small vessel ischemic changes. Remote lacunar infarct in the left basal ganglia. CEREBELLUM:No edema, hemorrhage, mass, acute infarction, or inappropriate atrophy. BRAINSTEM:No edema, hemorrhage, mass, acute infarction, or inappropriate atrophy. SKULL:No mass or other significant visible lesion. SINUSES:Limited views demonstrate no significant mucosal thickening or fluid. OTHER:No restricted diffusion. Normal vascular flow voids. CONCLUSION:Mild chronic changes. No acute infarct or hemorrhage. Otherwise, negative head MRI. Dictated by: Yeison Gregory M.D. on 12/27/2020 at 01:37 PM
--- NOTE | 2020-12-27 16:14 | PCM.ECHO ---
APPROVED REPORT EXAM: Comprehensive 2D, Doppler, and color-flow Echocardiogram. Patient Location: IN-PATIENT Indications Syncope 2D Dimensions LVOT Diameter 2.31 (1.8-2.4cm) LVEF(%) 61.34 (>50%) M-Mode Dimensions Left Atrium(MM) 3.90 (2.5-4.0cm) IVSd 1.25 (0.7-1.1cm) Aortic Root 2.75 (2.2-3.7cm) LVDd 5.40 (4.0-5.6cm) Aortic Cusp Exc 1.35 (1.5-2.0cm) PWd 1.20 (0.7-1.1cm) MV EPSS 1.68 (<0.5cm) IVSs 1.65 cm FS (%) 27.55 % LVDs 3.90 (2.0-3.8cm) ESV(Teich) 67.34 ml PWs 1.35 cm LVEF(%) 52.96 (>50%) Volumes Biplane 2D LV Volumes Biplane 2D LA Volumes LVEDv A4C 84.58 mL LA ESV Index LVESv A4C 32.55 mL Aortic Valve AoV Peak Josue. 1.75 m/s AoV VTI 30.15 cm AO Peak GR. 12.35 mmHg AO Mean GR. 7.00 mmHg LVOT VTI 16.55 cm LVOT Peak Josue. 0.85 m/s NADINE(VTI)/BSA 2.30 cm2/m2 NADINE (VTI) 2.30 cm2 Mitral Valve MV E Velocity 0.80m/s MR Peak Gr. 10.05mmHg MV A Velocity 1.00m/s MV Mean Gr. 1.60mmHg E/A Ratio 0.8 TDI Lateral E' P. V 0.09m/s Medial E' P. V 0.07m/s E/Lateral E' 8.9 E/Medial E' 11.4 E/Septal E 11.4 Pulmonary Valve PV Peak Velocity 0.50m/s PV Peak Grad. 1.10mmHg RVOT VTI 11.59cm Tricuspid Valve TR P. Velocity 2.25m/s RAP ESTIMATE 10.00mmHg TR Peak Gr. 20.88mmHg RVSP 30.88mmHg LEFT VENTRICLE The left ventricle is normal size. The left ventricular systolic function is normal. The left ventricular ejection fraction is within the normal range. There is normal left ventricular wall thickness. There is normal LV segmental wall motion. There is no ventricular septal defect visualized. No left ventricle thrombus noted on this study. LVEF is 60-65%. RIGHT VENTRICLE The right ventricle is normal size. The right ventricular systolic function is normal. There is normal right ventricular wall thickness. ATRIA The left atrium size is normal. The right atrium size is normal. The interatrial septum is intact with no evidence for an atrial septal defect. AORTIC VALVE The aortic valve is normal in structure. There is no aortic valvular stenosis. No aortic regurgitation is present. There is no aortic valvular vegetation. MITRAL VALVE The mitral valve is normal in structure. There is no mitral valve stenosis. Mild to moderate mitral regurgitation. There is no evidence of mitral valve vegetations. TRICUSPID VALVE The tricuspid valve is normal in structure. There is no tricuspid valve stenosis. Moderate to severe tricuspid regurgitation There is no tricuspid valve vegetations. PULMONIC VALVE Pulmonic valve is not well visualized. There is no pulmonic valvular stenosis. There is no pulmonic valvular regurgitation. GREAT VESSELS The aortic root is normal in size. Pulmonary artery is not well visualized. Aortic arch is not well visualized. IVC is not well visualized. PERICARDIUM There is no pericardial effusion. There is no pleural effusion. Other Information Study Quality: Fair <Conclusion> The left ventricular systolic function is normal. LVEF is 60-65%. Mild to moderate mitral regurgitation. Moderate to severe tricuspid regurgitation Electronically signed by : NEW RAUSCH. 12/27/2020 16:14:39
[2020-12-27] MEDS ORDERED: ROSU20TA2 PO (17:05)
[2020-12-27] MEDS ORDERED: METF500T PO (17:05)
[2020-12-27] MEDS ORDERED: ASPI-929 PO (17:05)
[2020-12-27] MEDS ORDERED: LOSA25TA2 PO (17:08)
--- NOTE | 2020-12-27 17:17 | PRM.DC ---
Subjective Subjective Date of Discharge: Dec 27, 2020 Time of Request to Discharge: 17:09 Subjective Feeling better tolerating p.o. intake well no nausea vomiting no chest pain no shortness of breath no dizziness no lightheadedness, No lateralizing weakness or numbness Patient History: Unknown 32 MOTHER 33 FATHER Exam Vital Signs Vital Signs Date Time Temp Pulse Resp B/P (MAP) Pulse Ox O2 Delivery O2 Flow Rate FiO2 12/27/20 12:27 98.1 85 20 145/74 (97) 96 Room Air General Appearance: Alert, Oriented X3, Cooperative, No acute distress HEENT: Atraumatic, PERRLA, EOMI, Mucous membr. moist/pink Respiratory: Clear to auscultation, Normal air movement Cardiovascular: Regular rate, Normal S1, Normal S2 Abdominal: Normal bowel sounds, Soft, No tenderness, No hepatospenomegaly Extremities: No clubbing, No cyanosis, No tenderness/swelling Neuro: Normal gait, Normal speech, Strength at 5/5 X4 ext, Normal tone Psych/Mental Status: Mental status NL, Mood NL VTE VTE Risk Total Score: 2 VTE Risk Score VTE Risk: Score 0-1 = Low Risk (Aggressive mobilization; early ambulation; no VTE prophylaxis required) Score 2: Moderate Risk (Intermittent/Pneumatic Compression Device OR Lovenox/Heparin/Coumadin) Score 3-4: High Risk (Intermittent/Pneumatic Compression Device AND Lovenox/Heparin/Coumadin) Score > or =5: Highest Risk (Intermittent/Pneumatic Compression Device AND Lovenox/Heparin/Coumadin) Objective Vitals and I/O Vital Sign - Last 24 Hours 12/26/20 12/26/20 12/26/20 12/26/20 17:18 17:20 17:30 17:37 Pulse 88 82 B/P (MAP) 184/106 182/106 (131) 134/68 (90) Pulse Ox 97 98 O2 Delivery Room Air 12/26/20 12/26/20 12/26/20 12/26/20 19:53 19:54 19:55 19:55 Temp 98.4 Resp 20 B/P (MAP) 150/82 (104) 142/88 (106) Pulse Ox 96 O2 Delivery Room Air Room Air Room Air 12/26/20 12/26/20 12/27/20 12/27/20 19:56 23:50 00:34 03:00 Temp 98.5 Pulse 78 84 73 Resp 20 20 20 B/P (MAP) 147/87 (107) 134/74 (94) Pulse Ox 92 93 O2 Delivery Room Air 12/27/20 12/27/20 12/27/20 12/27/20 04:00 04:12 05:00 06:00 Temp 98.7 Pulse 66 68 63 59 Resp 19 18 19 B/P (MAP) 131/50 (77) Pulse Ox 95 99 93 93 O2 Delivery Room Air 12/27/20 12/27/20 12/27/20 08:00 08:26 12:27 Temp 98.1 Pulse 85 Resp 22 20 B/P (MAP) 131/71 (91) 145/74 (97) Pulse Ox 93 96 O2 Delivery Room Air Room Air Intake and Output 12/27/20 07:00 Intake Total 100 ml Output Total 450 ml Balance -350 ml Procedures MRI, MRA Results; Normal neck MRA., MRA HEAD W/O CONTRAST - Normal examination. MRI of the brain-_ :Mild chronic changes. No acute infarct or hemorrhage. Otherwise, negative head MRI. CT of the brain: CONCLUSION: 1. Senescent changes with mild chronic small vessel ischemic demyelination and apparent tiny remote lacunar infarct of the left basal ganglia. The overall appearance is fairly similar to the previous study. No acute intracranial abnormality is identified. Echocardiogram:<Conclusion> The left ventricular systolic function is normal. LVEF is 60-65%. Mild to moderate mitral regurgitation. Moderate to severe tricuspid regurgitation All Results(Lab/Rad) Laboratory Tests Test 12/27/20 05:20 White Blood Count 8.9 10^3/uL Red Blood Count 4.12 10^6/uL Hemoglobin 12.7 g/dL Hematocrit 39.3 % Mean Corpuscular Volume 95.4 fL Mean Corpuscular Hemoglobin 30.8 pg Mean Corpuscular Hemoglobin Concent 32.3 g/dL Red Cell Distribution Width 13.2 % Platelet Count 255 10^3/uL Mean Platelet Volume 9.7 fL Neutrophils (%) (Auto) 60.0 % Lymphocytes (%) (Auto) 29.8 % Monocytes (%) (Auto) 8.9 % Neutrophils # (Auto) 5.3 10^3/uL Lymphocytes # (Auto) 2.65 10^3/uL1 Monocytes # (Auto) 0.8 10^3/uL Absolute Immature Granulocyte (auto 0.02 10^3 u/L Absolute Eosinophils (auto) 0.1 10^3/uL Immature Granulocytes % 0.20 % Eosinophils % 1.0 % Basophils % 0.1 % Basophils # 0.0 10^3/uL Sodium Level 141 mmol/L Potassium Level 3.6 mmol/L Chloride Level 104.0 mmol/L Carbon Dioxide Level 26.7 mmol/L Glucose Level 144 mg/dL Blood Urea Nitrogen 21 mg/dL Creatinine 0.99 mg/dL Calcium Level 8.8 mg/dL Anion Gap 13.9 Estimated GFR () 68.1 Est GFR (CKD-EPI)(Non-Afr Bruneian) 56.3 BUN/Creatinine Ratio 21.0 Hemoglobin A1c 7.8 % Magnesium Level 1.7 mg/dL Triglycerides Level 101 mg/dL Cholesterol Level 228 mg/dL LDL Cholesterol, Calculated 157.8 VLDL Cholesterol, Calculated 20.2 HDL Cholesterol 50 mg/dL Cholesterol Ratio (LDL/HDL) 3.1 Cholesterol/HDL Ratio [id number] Thyroid Stimulating Hormone (TSH) 0.543 mIU/mL Current Medications Medications (Trade) Dose Ordered Sig/Dale Route PRN Reason Start Time Stop Time Status Last Admin Dose Admin Sodium Chloride 1,000 ml @ 0 mls/hr Q0M ONCE IV 12/26/20 15:00 12/26/20 15:01 DC 12/26/20 15:02 Sodium Chloride 1,000 ml @ ud STK-MED ONCE .ROUTE 12/26/20 14:48 12/26/20 14:48 DC Hydralazine HCl (Apresoline) 10 mg Q4HR PRN IV HYPERTENSION 12/26/20 17:30 01/25/21 17:29 12/26/20 17:18 Ondansetron HCl (Zofran) 4 mg Q4H PRN IV NAUSEA / VOMITING 12/26/20 17:30 01/25/21 17:29 12/26/20 17:52 Aspirin (Aspirin Ec) 162 mg DAILY PO 12/27/20 09:00 01/26/21 08:59 12/27/20 08:42 Aspirin (Aspirin Ec) 162 mg STAT STAT PO 12/26/20 17:55 12/26/20 20:37 DC 12/26/20 18:23 Pantoprazole Sodium (Protonix) 40 mg DAILY PO 12/27/20 09:00 01/26/21 08:59 12/27/20 08:42 Magnesium Sulfate 50 ml @ 50 mls/hr OT ONCE IV 12/27/20 08:30 12/27/20 09:30 DC 12/27/20 08:30 Medication Reconciliation Scheduled Aspirin (Aspirin Ec), 162 MG PO DAILY Losartan Potassium (Cozaar), 1 TAB PO DAILY Meloxicam (Meloxicam), 1 TAB PO DAILY, (Reported) Metformin Hcl (Glucophage), 500 MG PO BID Rosuvastatin 20MG (Crestor 20MG), 20 MG PO HS Discontinued Medications Ciprofloxacin Hcl (Cipro), 500 MG PO BID Discontinued Reason: No Longer Taking Tramadol Hcl (Tramadol Hcl), 50 MG PO Q6 PRN for PAIN Discontinued Reason: No Longer Taking Plan Plan My Orders - OSCAR PRESTON MD Procedure Category Date Status Time Hydralazine Hcl PHA 12/26/20 In Process (Apresoline) 17:30 Ondansetron Hcl/Pf PHA 12/26/20 In Process (Zofran) 17:30 Request For Echo ECHO 12/27/20 Resulted 09:00 Lipid Panel(Ml) LAB 12/27/20 Complete 05:00 Thyroid Stimulating LAB 12/27/20 Complete Horm(Ml) 05:00 Hemoglobin A1c(Ml) LAB 12/27/20 Complete 05:00 Magnesium LAB 12/27/20 Complete 05:00 Aspirin (Aspirin Ec) PHA 12/27/20 In Process 09:00 Aspirin (Aspirin Ec) PHA 12/26/20 Complete 17:55 Pantoprazole Sodium PHA 12/27/20 In Process (Protonix) 09:00 Orthostatics On NURORDERS 12/26/20 Transmitted Arrival 17:56 Resuscitation Status CODE 12/26/20 Transmitted 18:27 Mri Brain Wo Contrast MRI 12/27/20 Resulted 17:38 Mra/Mrv Head Wo MRI 12/27/20 Resulted Contrast 17:38 Mra Neck Wo Contrast MRI 12/27/20 Resulted 17:38 Telemetry-Add On NURORDERS 12/27/20 Transmitted Order(In/Mino) 00:35 Clear Liquid Diet DIET 12/27/20 Transmitted Breakfast Cbc With Auto Diff LAB 12/27/20 Complete 05:40 Basic Metabolic Panel LAB 12/27/20 Complete 05:40 Admit Orders ADM 12/26/20 Transmitted 16:24 Magnesium 2 Gm/Water PHA 12/27/20 Complete 50ml (Magnesium Sul 08:30 Echo With Doppler EKG 12/27/20 Complete 09:47 Discharge DISCHARGE 12/27/20 Transmitted 17:01 1. Syncope suspect TIA - ABCD score is less than 4 2. Hypertension 3. Diabetes mellitus type 2 4. Dyslipidemia 5. Osteoarthritis 6. Remote Lacunar infarct of the basal ganglia Plan:Patient was advised on her newly diagnosed medical problems and management patient also was advised to follow-up with PCP in 1 week time to evaluate the diabetic control and had possibly SGLT2 inhibitors OSCAR PRESTON MD Dec 27, 2020 17:17
[2020-12-27 17:34] VITALS: BP 176/93
[2020-12-27 18:30] VITALS: BP 174/96
== END 2020-12-27 18:08 | disposition home or self-care (01) | DRG 69 ==
LOC: ER 14:35 → ICU 15:59
PROVIDERS: ADMIT Internal Medicine; ATTEND Internal Medicine
DX: G45.9 Transient cerebral ischemic attack, unspecified (principal); M17.10 Unilateral primary osteoarthritis, unspecified knee; I10 Essential (primary) hypertension; E11.9 Type 2 diabetes mellitus without complications; E78.5 Hyperlipidemia, unspecified; Z86.73 Personal history of transient ischemic attack (TIA), and cerebral infarction without residual deficits; Z90.710 Acquired absence of both cervix and uterus
CPT/HCPCS: 36415; 70450; 70544; 70547; 70551; 71045; 80048; 80053; 80061; 80307; 81001; 81003; 82550; 82553; 83036; 83735; 83880; 84443; 84484; 85025; 85379; 85610; 85730; 87086; 93005; 93306; 99285; G0378; J0360; J2405; J3475; J7030

== ENCOUNTER 2022-06-25 15:00 | Emergency (ER) | payer BC, MEDICARE ==
[~2022-06-25] VITALS: Ht 154.9 cm; Wt 50.8 kg
[2022-06-25 15:00] VITALS: BP 140/65
[~2022-06-25 15:00] MED LIST changes: +ASPI-929 PO; +LOSA25TA2 PO; +METF500T PO; +ROSU20TA2 PO
[2022-06-25] MEDS ORDERED: NS 1000ML 1,000 ML STA (15:07)
--- NOTE | 2022-06-25 15:24 | DIREP ---
PROCEDURE:CHEST 1 VIEW COMPARISON:[facility], CR, XRAY CHEST SINGLE VW, 12/26/2020, 02:40 PM. INDICATIONS:syncope FINDINGS: LUNGS/PLEURA:Mild chronic interstitial changes. No focal consolidation, pleural effusion, or pneumothorax. VASCULATURE:Normal. Unremarkable pulmonary vasculature. CARDIAC:Normal. No cardiac silhouette abnormality or cardiomegaly. MEDIASTINUM:Mild aortic arch calcifications. Tortuosity of the thoracic aorta. No visible mass or adenopathy. BONES:Degenerative changes in the spine and shoulders. No acute findings. OTHER:Negative. CONCLUSION:No acute cardiopulmonary findings or significant interval change. Dictated by: Diego Cadena M.D. on 06/25/2022 at 03:22 PM
[2022-06-25] MEDS ORDERED: NS 1000ML 1,000 ML ONE (15:34)
--- NOTE | 2022-06-25 15:44 | PCM.EKG ---
[facility] Test Date: 2022-06-25 Test Time: 15:40:27 Pat Name: JARAD BISWAS Department: [id number] Room: Gender: F Bridge [employer] Member: : [id number] Requested By: JULEE HAYWOOD Order Number: [id number] Reading MD: Myles Haywood Measurements Intervals [place] Rate: 68 P: SC: QRS: -37 QRSD: 94 T: 15 QT: 414 QTc: 441 Interpretive Statements Left axis deviation Compared to ECG 12/26/2020 14:40:50 Left-axis deviation now present Left ventricular hypertrophy no longer present Electronically Signed On 06-25-2022 16:14:57 [employer] by Myles Haywood Please click the below link to view image of tracing.
[2022-06-25 15:55] LABS: BASOPHIL % 0.3 % (0.0-0.2); EOSINOPHIL # 0.2 10^3/uL (0.0-0.2); LYMPHOCYTES # 1.08 10^3/uL1 (1.0-4.8); LYMPHOCYTES % 17.7 % (24.0-44.0); MONOCYTES # 0.7 10^3/uL (0.3-0.8); MONOCYTES % 11.1 % (5.0-12.0); NEUTROPHIL # 4.1 10^3/uL (1.8-7.7); NEUTROPHILS % 67.9 % (41.0-85.0); PLATELET COUNT 244 10^3/uL (150-400); RED CELL DISTRIBUTION WIDTH 12.5 % (11.5-14.5)
[2022-06-25 16:16] LABS: CARBON DIOXIDE 25.8 mmol/L (20.0-32)
--- NOTE | 2022-06-25 16:20 | ER.PDOC ---
General Chief Complaint: Syncope Stated Complaint: N/V, NEAR SYNCOPE Time seen by MD: 15:17 Source: patient, EMS Exam Limitations: no limitations History of Present Illness Initial Comments Patient is a 67-year-old female with a past medical history of a CVA who comes in via EMS after having a possible syncopal episode. It is stated the patient Was at the [employer] when she got overheated and had a syncopal event. It is actually unclear whether the event was 100% syncopal or presyncope. The patient does not state that she does not remember. EMS states that patient's vital signs and blood glucose are within normal limits in route. And they gave her 4 mg of Zofran in route as she got nauseous. Patient states that she believes that she just got a little overheated and got lightheaded denies any chest pain shortness of breath headache or any other symptoms or concerns at this time. EMS does state the patient was diaphoretic. Allergies: Coded Allergies: No Known Allergies (Unverified , 03/16/18) Home Meds Active Scripts Losartan Potassium (COZAAR) 25 Mg Tablet, 1 TAB PO DAILY, #30 TAB 5 Refills Prov:OSCAR PRESTON MD 12/27/20 Rosuvastatin 20MG (CRESTOR 20MG) 20 Mg Tablet, 20 MG PO HS for 30 Days, TAB Prov:OSCAR PRESTON MD 12/27/20 Metformin Hcl (GLUCOPHAGE) 500 Mg Tablet, 500 MG PO BID for 30 Days Prov:OSCAR PRESTON MD 12/27/20 Aspirin (ASPIRIN EC) 81 Mg Tablet.dr, 162 MG PO DAILY for 30 Days Prov:OSCAR PRESTON MD 12/27/20 Past Medical History Medical History: CVA/TIA/stroke, diabetes, hypertension Surgical History: knee Family History Significant Family History: no pertinent family hx Social History Smoking: non-smoker Alcohol Use: none Drug Use: none Reviewed Nursing Reviewed: Vital Signs, Abn. Noted, Nursing Assessment Review of Systems Constitutional: diaphoresis EENTM: denies no symptoms reported, denies see HPI, denies eye pain, denies blurred vision, denies tearing, denies double vision, denies ear pain, denies ear discharge, denies nose pain, denies nose congestion, denies throat pain, denies throat swelling, denies mouth pain, denies mouth swelling, denies other Respiratory: denies no symptoms reported, denies see HPI, denies cough, denies orthopnea, denies shortness of breath, denies stridor, denies wheezing, denies other Cardiovascular: syncope Gastrointestinal: denies no symptoms reported, denies see HPI, denies abdominal pain, denies constipation, denies diarrhea, denies nausea, denies vomiting, redd es other Genitourinary: denies no symptoms reported, denies see HPI, denies discharge, denies dysuria, denies frequency, denies hematuria, denies pain, denies other Musculoskeletal: denies no symptoms reported, denies see HPI, denies back pain, denies gout, denies joint pain, denies joint swelling, denies muscle pain, denies muscle stiffness, denies neck pain, denies other Skin: denies no symptoms reported, denies see HPI, denies change in color, denies change in hair/nails, denies dryness, denies lesions, denies lumps, denies rash, denies other Psychiatric/Neurological: denies no symptoms reported, denies see HPI, denies anxiety, denies depressed, denies emotional problems, denies headache, denies numbness, denies paresthesia, denies pre-existing deficit, denies seizure, denies tingling, denies tremors, denies weakness, denies other Physical Exam General Appearance: No Apparent Distress, WD/WN HEENT: PERRL/EOMI, Normal ENT Inspection, TMs Normal, Pharynx Normal Neck: Non-Tender, Full Range of Motion, Supple, Normal Inspection Cardiovascular/Respiratory: Regular Rate, Rhythm, No M/R/G, Normal Peripheral Pulses, No JVD, Normal Breath Sounds, No Respiratory Distress Gastrointestinal: Normal Bowel Sounds, No Organomegaly, No Pulsatile Mass, Non Tender, Soft Extremities: Normal Range of Motion, Non-Tender, Normal Inspection, No Pedal Edema, No Calf Tenderness, Normal Capillary Refill Psychiatric: Alert, Oriented x 3 Cranial Nerves: Normal Hearing, Normal Speech, PERRL Coordination/Gait: Normal Finger to Nose, Normal Gait, Negative Romberg's Sign Motor/Sensory: No Motor Deficit, No Sensory Deficit, No Pronator Drift, Negative Babinski's Sign Skin: Normal Color, Warm/Dry Lymphatic: No Adenopathy Results/Orders Results/Orders Orders - JULEE CLARKE MD Cbc With Auto Diff (06/25/22 15:07) Comprehensive Metabolic Panel (06/25/22 15:07) PT (06/25/22 15:07) Partial Thromboplastin Time. (06/25/22 15:07) D-Dimer (06/25/22 15:07) Xr Chest 1v (06/25/22 15:07) Ekg-Routine (06/25/22 15:07) Saline Lock (06/25/22 15:07) Troponin I High Sensitivity (06/25/22 15:07) 0.9 % Sodium Chloride (Ns 1000ml) (06/25/22 15:07) 0.9 % Sodium Chloride (Ns 1000ml) (06/25/22 15:34) Vital Signs Date Time Temp Pulse Resp B/P (MAP) Pulse Ox O2 Delivery O2 Flow Rate FiO2 06/25/22 15:00 98.1 77 18 140/65 (90) 99 Room Air* 0 21 06/25/22 15:00 98.1 77 18 99 06/25/22 15:00 98.1 77 18 Administered Medications Medications (Trade) Dose Ordered Sig/Dale Route PRN Reason Start Time Stop Time Status Last Admin Dose Admin Sodium Chloride 1,000 ml @ 0 mls/hr Q0M STAT IV 06/25/22 15:07 06/25/22 15:09 DC 06/25/22 15:39 1,200 MLS/HR Laboratory Tests Test 06/25/22 15:51 White Blood Count 6.1 10^3/uL (4.5-11.0) Red Blood Count 3.94 10^6/uL (4.00-5.20) L Hemoglobin 12.2 g/dL (12.0-15.0) Hematocrit 38.2 % (36.0-46.0) Mean Corpuscular Volume 97.0 fL (78-100) Mean Corpuscular Hemoglobin 31.0 pg (26-34) Mean Corpuscular Hemoglobin Concent 31.9 g/dL (33-36.5) L Red Cell Distribution Width 12.5 % (11.5-14.5) Platelet Count 244 10^3/uL (150-400) Mean Platelet Volume 9.7 fL (7.8-11.0) Neutrophils (%) (Auto) 67.9 % (41.0-85.0) Lymphocytes (%) (Auto) 17.7 % (24.0-44.0) L Monocytes (%) (Auto) 11.1 % (5.0-12.0) Neutrophils # (Auto) 4.1 10^3/uL (1.8-7.7) Lymphocytes # (Auto) 1.08 10^3/uL1 (1.0-4.8) Monocytes # (Auto) 0.7 10^3/uL (0.3-0.8) Absolute Immature Granulocyte (auto 0 10^3 u/L (0-2) Absolute Eosinophils (auto) 0.2 10^3/uL (0.0-0.2) Immature Granulocytes % 0.00 % (0.00-0.50) Eosinophils % 3.0 % (0.0-5.0) Basophils % 0.3 % (0.0-0.2) H Basophils # 0.0 10^3/uL (0.0-0.1) Prothrombin Time 9.7 SEC (9.1-11.5) Prothrombin Time INR (Non-Therap) 0.9 Activated Partial Thromboplast Time 23.4 SEC (22.5-33.1) D-Dimer 0.47 mg/L (0.19-0.49) Sodium Level 141 mmol/L (132-145) Potassium Level 5.3 mmol/L (3.6-5.2) H Chloride Level 107.0 mmol/L (96-109) Carbon Dioxide Level 25.8 mmol/L (20.0-32) Anion Gap 13.5 Blood Urea Nitrogen 28 mg/dL (7-18) H Creatinine 1.37 mg/dL (0.59-1.40) Estimated GFR () 46.5 (>/=60) Est GFR (CKD-EPI)(Non-Afr Turkmen) 38.5 (>/=60) BUN/Creatinine Ratio 20.0 Glucose Level 120 mg/dL (70-110) H Calcium Level 9.3 mg/dL (8.4-10.5) Total Bilirubin 0.5 mg/dL (0.2-1.0) Aspartate Amino Transferase (AST) 30 U/L (0-35) Alanine Aminotransferase (ALT) 24 U/L (12-78) Alkaline Phosphatase 63 U/L (50-136) Troponin I High Sensitivity 44 ng/L (0-50) Total Protein 7.6 g/dL (6.4-8.2) Albumin 3.7 g/dL (3.4-5.0) Globulin 3.9 Albumin/Globulin Ratio 0.948 Progress Progress Patient here after syncopal event does seem to be are more related to heat and dehydration however will perform a work-up to see if there is any suspected cardiac related causes. Patient otherwise extraordinarily well appearing will do a work-up and will monitor patient. Patient's EKG computer read said that she was in atrial fibrillation I marched out with my own calipers and this is not correct. [id number] doing better has felt well the entire time she is been here. Labs do indicate that she is slightly dehydrated this could have contributed to her syncopal event. She is reliable here with her daughter who can continue to watch her will at discharge she voiced understanding when to follow-up and when to return to the ER. ER DEPARTURE Departure Time of Disposition: 16:24 Disposition: 01 HOME / SELF CARE / HOMELESS Impression: Primary Impression: Syncope Additional Impression: Dehydration Condition: Improved Patient Instructions: Dehydration, Elderly, Syncope Referrals: MARY PALACIOS PA-C (PCP) PRIMARY CARE PROVIDER Additional Instructions: Follow-up with primary care provider within 1 week. If you have any new persistent or worsening symptoms or concerns seek medical attention. Duration or Time Spent with Pa: 45 Justification of Admit/Observ Is this patient coming directl: No *Level of Care/Services Provid: ER Admit Criteria Met: NO Justification Content JUSTIFICATION FOR ADMISSION Instructions 1. Open link in [employer] Browser. [email or web address] 2. Copy and paste data needed to meet the Admit Criteria. 3. Modify and document the needful data to meet the Admit Criteria. Problem Qualifiers Primary Impression: Syncope Syncope type: heat syncope Encounter type: initial encounter Qualified Codes: T67.1XXA - Heat syncope, initial encounter JULEE CLARKE MD Jun 25, 2022 16:20
== END 2022-06-25 16:28 | disposition home or self-care (01) ==
LOC: ER 15:00 → EDBD 15:00 → ER 16:28
DX: R55 Syncope and collapse (principal); E86.0 Dehydration; E11.9 Type 2 diabetes mellitus without complications; I10 Essential (primary) hypertension; Z86.73 Personal history of transient ischemic attack (TIA), and cerebral infarction without residual deficits; Z98.890 Other specified postprocedural states; Z79.82 Long term (current) use of aspirin; Z79.84 Long term (current) use of oral hypoglycemic drugs
CPT/HCPCS: 99285; 96360; 71045; 80053; 85025; 36415; 85379; 84484; 85610; 85730; 93005; J7030